=== PATIENT | female | born 1975 | race American Indian/Alaskan Native ===

== ENCOUNTER 2017-11-11 18:05 | Emergency (ER) | payer OTHER ==
[2017-11-11 18:12] VITALS: BP 122/89; PULSE 76; RESP 16; TEMP 97.9; O2SAT 99
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
--- NOTE | 2017-11-12 09:10 | RAD ---
PROCEDURE: Cervical Spine Radiographs. HISTORY: Pain. COMPARISON: None. FINDINGS: BONES: Straightened curvature. No fracture or spondylolisthesis. Advanced degenerative disease appreciated at C6-7 and appears mild at C5-6 and C4-5. Multilevel facet joint degenerative arthropathy is identified. The odontoid process appears intact. DISC SPACES: As above. SOFT TISSUES: Normal. No prevertebral soft tissue swelling. OTHER FINDINGS: None. IMPRESSION: Straightened cervical curvature without fracture or spondylolisthesis is evident. Multilevel degenerative disease appreciate the mid and inferior levels well as facet joint arthropathy.
== END 2017-11-11 21:04 | disposition home or self-care (01) ==
LOC: H.ER 18:05
DX: M54.2 Cervicalgia (principal); M54.9 Dorsalgia, unspecified; V43.62XA Car passenger injured in collision with other type car in traffic accident, initial encounter; Y92.410 Unspecified street and highway as the place of occurrence of the external cause